=== PATIENT | female | born 1935 | race Caucasian/White ===

== ENCOUNTER 2016-12-18 18:50 | Inpatient (IN) | payer MEDICARE ==
[~2016-12-18] VITALS: Ht 170.2 cm; Wt 70.9 kg
[~2016-12-18 18:50] MED LIST: ALENDRONATE SOD70 MG PO; ARICEPT5 MG PO; ATIVAN0.5 MG PO; INVANZ 1 GM/NS 11 G1 IM; LEVAQUIN750 MG PO; NATURAL SENNA8.6 MG PO; OMEGA-3100 MG PO; POTASSIUM CHLO10 ME1 PO; REMERON15 MG PO; RIVASTIGMINE3 MG PO; SEROQUEL50 MG PO; ULTRAM50 MG PO; VITAMIN D2000 UNIT PO
[2016-12-18] MEDS ORDERED: ATIVAN0.5 MG PO (19:45)
[2016-12-18] MEDS ORDERED: NAMENDA5 MG PO (19:52)
[2016-12-18] MEDS ORDERED: ZYPREXA5 MG PO (19:53)
[2016-12-18] MEDS ORDERED: KLONOPIN0.5 MG PO (19:54)
[2016-12-18] MEDS ORDERED: ZOLOFT50 MG PO (20:08)
[2016-12-18 20:13] VITALS: BP 125/52
[2016-12-18 20:23] VITALS: BP 125/52; BMI 24.5
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
[2016-12-19 06:55] LABS: BASOPHILS 0.8 % (0.0-2.0); EOSINOPHILS 0 % (0-7); HEMATOCRIT 40.9 % (36.0-48.0); HEMOGLOBIN 13.2 g/dL (12-16); IMMATURE GRANULOCYTES 0.2 % (0-5); LYMPHOCYTES 26.5 % (15-50); MCH 29.4 pg (26.0-34.0); MCHC 32.3 g/dL (31.0-37.0); MCV 91.1 fL (80.0-100.0); MEAN PLATELET VOLUME 10.5 fL (7.4-10.4); MONOCYTES 9.6 % (2-11); NEUTROPHILS 62.9 % (40-80); PLATELET COUNT 186 10x3/uL (130-400); RBC 4.49 10x6/uL (4.00-5.40); RDW 13.5 % (11.5-14.5); WBC 5.3 10x3/uL (4.8-10.8)
[2016-12-19 07:09] LABS: APPEARANCE HAZY (CLEAR); BACTERIA MODERATE /hpf (NONE SEEN); BILIRUBIN NEGATIVE (NEGATIVE); COLOR YELLOW (YELLOW); EPITHELIAL CELLS OCC /hpf (0-5); GLUCOSE NEGATIVE (NEGATIVE); KETONE NEGATIVE (NEGATIVE); LEUKOCYTE ESTERASE TRACE (NEGATIVE); MUCUS <1+ /lpf (NONE SEEN); NITRITE NEGATIVE (NEGATIVE); PROTEIN NEGATIVE (NEGATIVE); UROBILINOGEN NORMAL (NORMAL); WHITE CELLS - URINE OCC /hpf (0-5)
[2016-12-19 07:10] LABS: AMORPHOUS SEDIMENT <1+ /lpf (NONE SEEN)
[2016-12-19 07:19] LABS: HEMOGLOBIN A1C 5.4 % (4.8-6.0)
[2016-12-19 07:24] LABS: ALBUMIN 3.5 g/dL (3.4-5.0); ANION GAP 12.8 mmol/L (8-16); BILIRUBIN - TOTAL 0.5 mg/dL (0.2-1.3); CALCIUM 8.9 mg/dL (8.5-10.1); CARBON DIOXIDE 27.1 mmol/L (21.0-32.0); CHOL - HDL RATIO 3.1 ratio (2.3-4.1); CREATININE - SERUM 0.9 mg/dL (0.6-1.3); LDL-HDL RATIO 1.9 ratio (1.5-3.5); POTASSIUM - SERUM 3.9 mmol/L (3.5-5.1); PROTEIN - SERUM 6.6 g/dL (6.4-8.2); THYROID STIMULATING HORMONE 2.16 uIU/mL (0.36-3.74)
[2016-12-19 08:36] VITALS: BP 121/64
--- NOTE | 2016-12-19 10:01 | NUR ---
EJ SPOKE WITH JAZ AT [facility] AND SHE STATED THE FACILITY WILL ACCEPT PT BACK AFTER SHE IS STABILIZED. EJ CALLED PT'S DTR, DAMIÁN, TO REPORT.
[2016-12-19 10:47] VITALS: Ht 170.2 cm; Wt 70.9 kg
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
[2016-12-19 19:30] VITALS: BP 143/85
--- NOTE | 2016-12-19 23:25 | NUR ---
B) Recieved patient sitting in room, alert and oriented to self, confused and unaware of why she is here, I) Administered perscribed medication, redirected and oriented as needed, R) Medication compliant, resting now quietly in bed, P) Continue plan of care, continue to monitor.
[2016-12-20 06:14] LABS: RAPID PLASMA REAGIN Non Reactive (Non Reactive)
[2016-12-20 08:21] LABS: FOLATE (FOLIC ACID) - SERUM >20.0 ng/mL (>3.0)
[2016-12-20 09:32] VITALS: BP 103/98
--- NOTE | 2016-12-20 12:52 | NUR ---
PATIENT IS CONFUSED, SHE IS ANXIOUS, SHE KEEPS GETTING IN OTHER PATIENT'S SPACE. SHE DOES NOT HAVE ANY BOUNDARIES, SHE IS TOUCHING OTHERS. SHE IS TEARFUL AND SHE CRIES SHE BELIEVES HER BABY IS OUTSIDE THE DOOR OF THE DAYROOM. I) PROVIDE MEDS ORDERED AND ATIVAN 0.5 MG PO GIVEN NOW. R) PATIENT IS COMPLIANT WITH MEDS, BUT CURRENTLY PACING AND ANXIOUS. P) CONTINUE PLAN OF CARE.
--- NOTE | 2016-12-20 13:39 | NUR ---
PATIENT IS SITTING IN A GLORIA CHAIR, BUT SHE IS NOT ABLE TO BE QUIET OR BE STILL, IT IS TIME FOR MUSIC THERAPY, BUT SHE IS NOT LISTENING, SHE IS TOO CONFUSED TO UNDERSTAND AT THIS TIME, NO AGGRESSION NOTED TODAY.
--- NOTE | 2016-12-20 14:21 | NUR ---
PATIENT SITTING IN GLORIA CHAIR AND SHE IS TAKING HER SHOES OFF AND HER PANTS OFF, SHE IS NONSENSICAL, SHE IS NON STOP TALKING.
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
[2016-12-20 20:24] VITALS: BP 143/72
--- NOTE | 2016-12-21 00:20 | NUR ---
PATIENT IN DAYROOM, WANDERING GETTING VERY CLOSE TO A PEER AND MAKING HER VERY UNCOMFORTABLE. WHEN REDIRECTED, PATIENT BECAME AGITATED, HITTING, KICKING AND TRYING TO TRIP STAFF. PATIENT WAS GIVEN PRN 0.5 ATIVAN I.M. AND 2 MG OF HALDOL I.M.
[2016-12-21 09:01] VITALS: BP 137/56
--- NOTE | 2016-12-21 14:00 | NUR ---
B) PATIENT IS CONFUSED, SHE TALKS NONSTOP AND NONSENSICAL. SHE IS AMBULATING AND GETTING INTO THE BOOK CASES, SHE IS TEARING NEWSPAPERS, SHE IS NOT ABLE TO BE STILL AND SHE IS NONSTOP. SHE HAS NOT SHOWN ANY AGGRESSION TODAY. I) PROVIDE PRESCRIBED MEDS. R) PATIENT IS COMPLIANT WITH MEDS AND UNIT MILIEU. P) CONTINUE PLAN OF CARE.
--- NOTE | 2016-12-21 14:12 | PN ---
PATIENT:JEROMY YANG MEDICAL RECORD: [id number] LOCATION:[facility] ADMISSION DATE: 12/18/16 PROGRESS NOTE DATE OF SERVICE: 12/20/2016 SUBJECTIVE: The patient's case was discussed with staff. She has no new complaint. OBJECTIVE: The patient is severely impaired cognitively. She has very limited insight about her condition. She has been agitated and did require p.r.n. medication to calm her. ASSESSMENT: No change in diagnoses. PLAN: The patient is going to be given Zyprexa at a dose of 5 mg at bedtime. Zyprexa is being used to treat her underlying psychotic symptoms. She will be monitored for clinical changes associated with its use. TRANSINT:[id number] Voice Confirmation ID: [id number] DOCUMENT ID: [id number] ALEXANDRIA MORILLO MD at 1412 CC: [id number] DICTATION DATE: 12/20/16 1835 SEARCH ENGINE OPTIMIZATION STRATEGIST: 12/21/16 0009 ADM IN [place] [address] [place] [address]
[2016-12-21 21:50] VITALS: BP 133/66
--- NOTE | 2016-12-22 02:06 | NUR ---
B) Recieved patient ambulating in the day room, alert and oriented to self, very confused and wanders from place to place, difficulty expressing her needs, I) Administered perscribed medications, redirected as needed, R) Medication compliant, unable to orient P) Continue plan of care, continue to monitor.
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
--- NOTE | 2016-12-22 11:57 | PN ---
PATIENT:JEROMY YANG MEDICAL RECORD: [id number] LOCATION:[facility] ADMISSION DATE: 12/18/16 PROGRESS NOTE DATE OF SERVICE: 12/21/2016 SUBJECTIVE: The patient's case was discussed with staff. She has no new complaint. OBJECTIVE: The patient is severely impaired cognitively, but has not been overtly aggressive. She has had some hallucinations that have been reported to me, but I have not observed her and then based on my brief interaction with her, the patient denies them, but she really does not understand what she is saying. ASSESSMENT: No change in diagnoses. PLAN: The patient is in the very last stages of her dementing illness. I am pleasantly surprised that she eats as well as she does even though it is not anything close to adequate. I think that the time has come for hospice to be considered as an alternative for her. TRANSINT:[id number] Voice Confirmation ID: [id number] DOCUMENT ID: [id number] ALEXANDRIA MORILLO MD at 1157 CC: [id number] DICTATION DATE: 12/21/16 1438 COOKEE: 12/21/16 1758 ADM IN [facility] [address] [place] [address]
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
--- NOTE | 2016-12-22 17:29 | NUR ---
PATIENT'S DAUGHTER CALLED AND CHECKED ON HER.
[2016-12-22 19:30] VITALS: BP 162/94
--- NOTE | 2016-12-23 01:20 | NUR ---
B) Recieved patient ambulating in the day room, alert and oriented to self, responds to name, very confused, wanders form place to place, follows staff, I) Administered perscribed medications, redirected as needed, monitored for falls and safety, R) Medication compliant, pleasant and friendly toward staff, needy/clingy at times, P) Continue plan of care, continue to monitor.
[2016-12-23 07:00] VITALS: BP 122/102
--- NOTE | 2016-12-23 13:28 | NUR ---
B) Mumbles to self, fidgety, restless and other times quiet, withdrawm and calm. States she is better now, when asked to state this place, "I believe there is 'D' and an 'A' somewhere". Difficulty following directions, swatting at staff and pushign them away when assisting her to sit in her chair. Carries on long conversations with herself. I) Administer medications as ordered, redirect and reorient PRN, monitor behavior, assist with ADLs. R) Confused, took most of her medications crushed in applesauce. Spit out partial dose of her Exelon, Senokot, Potassium, and Vitamin D this morning. Got her full dose of her other medications. P) Monitor per plan of care.
--- NOTE | 2016-12-23 17:54 | NUR ---
PT BECAME VERY ANXIOUS AFTER DINNER. PT WOULD NOT STAY SITTING, STAFF TRIED MULTIPLE TIMES TO REDIRECT AND REORIENT PT. PT IS NOT EASILY REDIRECTED. PT IS HITTING, KICKING AND BITING STAFF.STAFF HAS TRIED TO WALK WITH PT TO HELP CALM HER.PT IS GRABBING AT OTHER PT'S AND SWINGING AT STAFF.PT IS GIVEN 0.4 ML OF HALDOL TO HELP WITH ANXIETY. PT IS MONITORED 1 ON 1 TO HELP WITH SAFETY AND TO CONTINUE TO TRY AND CALM PT. WILL CONTINUE TO MONITOR.
[2016-12-23 19:30] VITALS: BP 145/66
--- NOTE | 2016-12-23 20:23 | NUR ---
RECEIVED IN DAYROOM WITH STAFF AND PEERS AT HER SIDE. ONE ON ONE CARE FOR SAFETY. ATTENPTS TO STAND WIRHOUT ASSIST. BOX ALARM IS ON. CALM AND COOPERATIVE WITH CARE AND ASSESSMENTS. NO SIGNS OF HALLUCINATIONS. CONTINUES TO SIT IN CHAIR. WITH STAFF AT HER SIDE. CONTINUE PLAN OF CARE
[2016-12-24 08:08] VITALS: BP 156/65
--- NOTE | 2016-12-24 18:26 | NUR ---
ORIENTED TO SELF ONLY.DOESN'T FOLLOW COMMANDS.TAKES MEDS CRUSHED AND GIVEN IN APPLESAUCE.CAN WALK BUT IS VERY UNSTEADY.LIKES TO BUSY SELF WITH FOLDING THINGS.WILL CONTINUE WITH PLAN OF CARE,MONITOR FOR CHANGES AND SAFETY.
[2016-12-24 20:00] VITALS: BP 107/56
--- NOTE | 2016-12-24 20:49 | NUR ---
RECEIVED IN DAYROOM. SITTING IN RECLINER WITH STAFF AND PEERS AT HER SIDE. CONFUSED. ORIENTED TO SELF ONLY. NO SIGNS OF AGGRESSION OR HALLUCINATIONS. ONE ON ONE MONITORING FOR SAFETY. REINFORCE FALLS SAFETY. CONTINUES TO SIT QUIETLY. CONTINUE PLAN OF CARE
[2016-12-25 09:01] VITALS: BP 106/58
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
--- NOTE | 2016-12-25 18:29 | NUR ---
IS ORIENTED TO SELF ONLY.COMPLIANT WITH MEDS CRUSHED AND TAKEN IN PUDDING.IS VERY UNSTEADY ON HER FEET.AMBULATES ONLY WITH ASSIST TO PREVENT FALLS.IS UNCOOPERATIVE AT TIMES WHEN WANTING TO GET OUT OF CHAIR WITHOUT ASSIST.WILL CONTINUE WITH PLAN OF CARE ,MONITOR FOR CHANGES AND SAFETY.
--- NOTE | 2016-12-25 19:47 | NUR ---
RECEIVED IN DAYROOM. SITTING AT TABLE WITH STAFF AT HER SIDE. VERY CONFUSED. ATTEMPTS TO STAND WITHOUT ASSIST. ONE ON ONE CARE GIVEN FOR SAFETY. CALM AND COOPERATIVE WITH CARE AND ASSESSMENT. NO SIGNS OF AGGRESSION. CONTINUES TO SIT IN RECLINER. RESTLESS AT TIMES. CONTINUE PLAN OF CARE
[2016-12-25 22:30] VITALS: BP 135/73
[2016-12-26 08:44] VITALS: BP 132/71
--- NOTE | 2016-12-26 09:35 | NUR ---
Nutrition Follow Up: Chart reviewed. Pt is eating 33% meal avg on a regular diet. Noted pt requires assistance with meals. +BM 12/26/16. No new wt to assess. No new labs. Meds noted including Vit D. Pt continues with poor po intake. Rec consider an appetite stimulant. Rec continue current diet. Will order Ensure with meals. Will continue to provide selective menus and honor food preferences. RD following.
--- NOTE | 2016-12-26 12:25 | NUR ---
B) PATIENT IS CONFUSED, SHE KNOWS HER NAME ONLY, SHE SAYS NONSENSICAL WORDS, BUT EVERY ONCE IN AWHILE SHE SAYS A FULL SENTENCE THAT MAKES SENSE, SHE IS UNSTEADY IN GAIT TODAY. SHE IS KEEPING HER EYES CLOSED. I) PROVIDE PRESCRIBED MEDS. R) PATIENT IS COMPLIANT WITH MEDS, SHE TAKES THEM CRUSHED IN PUDDING AND SHE GOES SLOWLY. P) CONTINUE PLAN OF CARE.
--- NOTE | 2016-12-26 13:58 | PN ---
PATIENT:JEROMY YANG MEDICAL RECORD: [id number] LOCATION:[facility] [address] ADMISSION DATE: 12/18/16 PROGRESS NOTE DATE OF SERVICE: 12/25/2016 SUBJECTIVE: The patient's case was discussed with staff. She has no new complaint. OBJECTIVE: The patient is not eating very well. She is very disorganized. She is at times combative with caregivers. ASSESSMENT: No change in diagnoses. PLAN: This patient's dementia is in its final phases. I would anticipate that she is going to need inpatient hospice care of some sort in the near future. Her prognosis is exceedingly poor and I think at this point, simply making her manageable in a long-term care setting along with being comfortable and relieve the both physical and emotional distress is the most reasonable course to pursue. TRANSINT:[id number] Voice Confirmation ID: [id number] DOCUMENT ID: [id number] ALEXANDRIA MORILLO MD at 1358 CC: [id number] DICTATION DATE: 12/25/16 1117 LEAN MANUFACTURING SPECIALIST: 12/25/16 1208 ADM IN [facility] [address] [place] [address]
--- NOTE | 2016-12-26 14:22 | NUR ---
SW CALLED PT'S DTR, DAMIÁN, TO DISCUSS DISCHARGE PLANNING. PT DOES NOT QUALIFY FOR HOSPICE AT THIS TIME BUT WILL BE RE-EVALUATED IN 30 DAYS. PT'S DTR VERBALIZED UNDERSTANDING OF DISCHARGE PLANS AND DISEASE PROGRESSION.
[2016-12-26 20:00] VITALS: BP 105/56
--- NOTE | 2016-12-26 23:33 | NUR ---
B) Recieved patient in te day room sitting in a chair, alert and oriented to self, calm and cooperative this shift, I) Administered perscribed medications crushed in apple sauce, monitored for safety, R) Medication compliant,resting now quietly, P) Continue plan of care, continue to monitor.
[2016-12-27 09:05] VITALS: BP 121/44
--- NOTE | 2016-12-27 12:01 | NUR ---
B) PATIENT IS VERY CONFUSED, SHE IS KEEPING HER EYES CLOSED AND TRYING TO WALK AROUND, SHE IS SHUFFLING AND GAIT IS UNSTEADY, STAFF ASSISTED HER TO W/C, BUT SHE CONTINUED TO STAND, STAFF ASSISTED TO A GERICHAIR AND SHE IS RESTING, BUT TALKING NONSENSICAL. I) PROVIDE PRESCRIBED MEDS. R) PATIENT IS COMPLIANT WITH MEDS. P) CONTINUE PLAN OF CARE.
--- NOTE | 2016-12-27 14:31 | PN ---
PATIENT:JEROMY YANG MEDICAL RECORD: [id number] LOCATION:[facility] ADMISSION DATE: 12/18/16 PROGRESS NOTE DATE OF SERVICE: 12/26/2016 SUBJECTIVE: The patient's case was discussed with staff. She has no new complaint. OBJECTIVE: The patient is in good behavioral control with limited insight about her condition. She tolerates her medicines well. ASSESSMENT: No change in diagnoses. PLAN: Current medicines have been reviewed and will be maintained. Long-term prognosis is guarded. Supportive and educational interventions were made. TRANSINT:[id number] Voice Confirmation ID: [id number] DOCUMENT ID: [id number] ALEXANDRIA MORILLO MD at 1431 CC: [id number] DICTATION DATE: 12/26/16 1417 OUTSIDE INDUSTRIAL SALES REPRESENTATIVE: 12/26/16 1536 ADM IN [facility] [address] [place] [address]
[2016-12-27] MEDS ORDERED: MEGACE ES625 MG/5 M PO (14:46)
[2016-12-27] MEDS ORDERED: RISPERDAL0.5 MG PO (14:47)
[2016-12-27 19:30] VITALS: BP 118/54
--- NOTE | 2016-12-28 01:16 | NUR ---
B) Recieved sitting in the day room, alert and oriented to self, unaware of where she is , calm and cooperative this shift, I) Administered perscribed medications, monitored for safety, R) Medication compliant, remanins very confused, P) Continue plan of care.
--- NOTE | 2016-12-28 07:55 | NUR ---
D/C ORDERS AND MAR FAXED TO [facility], HARD COPY MADE TO GIVE TO ACUTE CARE REGISTERED NURSE.
[2016-12-28 08:35] VITALS: BP 127/66
--- NOTE | 2016-12-28 09:45 | NUR ---
B) PATIENT IS AWAKE AND SHE IS EATING WELL, TAKING MEDICATION EASILY, CRUSHED IN PUDDING, SHE IS AMBULATORY, BUT HAS UNSTEADY GAIT. SHE IS NOT SHOWING ANY AGGRESSION TODAY, SHE WILL D/C TODAY. PATIENT IS NONSENSICAL IN SPEECH MOSTLY. I) PROVIDE PRESCRIBED MEDS. R) PATIENT IS COMPLIANT WITH MEDS AND ENJOYS LISTENING TO MUSIC. P) CONTINUE POC.
--- NOTE | 2016-12-28 12:20 | NUR ---
CALLED REPORT TO LISA AT [facility], ALL BELONGINGS PACKED, PATIENT IS READY TO D/C.
--- NOTE | 2016-12-28 13:17 | NUR ---
SW SPOKE TO DTRDAMIÁN, ABOUT DISCHARGE PLANS FOR TODAY.
--- NOTE | 2016-12-28 13:45 | NUR ---
MANAGER TRAINEE HERE, PATIENT D/C'D WITH HER BACK TO [facility], HARD COPIES PROVIDED, BELONGINGS GIVEN BACK.
--- NOTE | 2016-12-30 06:18 | PN ---
PATIENT:JEROMY YANG MEDICAL RECORD: [id number] LOCATION:[facility] ADMISSION DATE: 12/18/16 PROGRESS NOTE DATE OF SERVICE: 12/28/2016 SUBJECTIVE: No new complaint. OBJECTIVE: The patient has done fairly well. She is stable on her medications, arrangements have now been made for discharge. On exam, mood is euthymic. Affect is constricted. Speech is terse. Content of thought is negative for overt psychosis. Sensorium shows no change. ASSESSMENT: No change in diagnosis. PLAN: Anticipate discharge later today. TRANSINT:[id number] Voice Confirmation ID: [id number] DOCUMENT ID: [id number] NIKKI MCGRATH III, MD at 0618 CC: [id number] DICTATION DATE: 12/28/16 1235 SCARF AND ANNEAL OPERATOR: 12/28/162124 DIS IN 12/28/16 [place] [address] [place] [address]
--- NOTE | 2016-12-31 14:58 | PN ---
PATIENT:JEROMY YANG MEDICAL RECORD: [id number] LOCATION:[facility] ADMISSION DATE: 12/18/16 PROGRESS NOTE DATE OF SERVICE: 12/27/2016 SUBJECTIVE: The patient's case was discussed with staff. She has no new complaint. OBJECTIVE: The patient is in good behavioral control with poor insight about her condition. She is severely impaired intellectually. ASSESSMENT: No change in diagnoses. PLAN: Current medicines and therapies have been reviewed and will be maintained. Her long-term prognosis is guarded. TRANSINT:[id number] Voice Confirmation ID: [id number] DOCUMENT ID: [id number] ALEXANDRIA MORILLO MD at 1458 CC: [id number] DICTATION DATE: 12/27/16 1445 ARTIFICIAL INTELLIGENCE SPECIALIST: 12/27/162005 DIS IN 12/28/16 [facility] [address] [place] [address]
--- NOTE | 2017-01-07 14:09 | DS ---
PATIENT:JEROMY YANG :31 MEDICAL RECORD: [id number] DISCHARGE SUMMARY ADMISSION DATE: 12/18/16 DISCHARGE DATE: 12/28/16 Psychiatric Discharge Summary IDENTIFYING DATA: The patient is 81 years old and she was admitted to the hospital on a voluntary basis from the [facility]. The patient apparently was having active hallucinations at the care home. The patient denied that this was true. Apparently, the patient had become increasingly confused and agitated in the care home. She through various things at staff and was breaking plates and other items around the facility. She was clearly having auditory hallucinations at that time she was interviewed and was responding to them. The patient had little or no recollection of the psychotic symptoms and when they were pointed out to her denied them. She was also observed standing in front of the wall talking to someone not present. HOSPITAL COURSE: The patient was admitted to the hospital and fully evaluated from both a medical, psychological, and social standpoint. The patient was treated with both mood stabilizing and memory enhancing medications and she did show improvement in her behavior. She was subsequently transitioned back to the care home. 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 AXIS II: None. AXIS III: Hypertension, mitral valve prolapse, history of hepatitis. AXIS IV: Moderate stressors. AXIS V: Global assessment of functioning is 35. PLAN: At the time of discharge, the patient was not acutely dangerous to herself or others. She was tolerating her medications well. Her long-term prognosis is guarded. TRANSINT:[id number] Voice Confirmation ID: [id number] DOCUMENT ID: [id number] ALEXANDRIA MORILLO MD at 1409 CC: [id number] DICTATION DATE: 01/04/17 1342 WOOL HAT SANDING MACHINE OPERATOR: 01/05/17 0155 DIS IN 12/28/16 [facility] [address] [place] [address]
== END 2016-12-28 13:46 | DRG 57 ==
LOC: D.PSYCH 18:50
PROVIDERS: ADMIT Psychiatry & Neurology Psychiatry
DX: G30.1 Alzheimer's disease with late onset (principal); F02.81 Dementia in other diseases classified elsewhere, unspecified severity, with behavioral disturbance; I10 Essential (primary) hypertension; Z86.19 Personal history of other infectious and parasitic diseases; M19.90 Unspecified osteoarthritis, unspecified site; K21.9 Gastro-esophageal reflux disease without esophagitis; F41.9 Anxiety disorder, unspecified; F32.9 Major depressive disorder, single episode, unspecified; R63.0 Anorexia

== ENCOUNTER 2017-12-11 02:59 | Emergency (ER) | payer MEDICARE ==
[2016-12-19 10:47] VITALS: BMI 24.5
[~2017-12-11 02:59] MED LIST changes: +KLONOPIN0.5 MG PO; +MEGACE ES625 MG/5 M PO; +NAMENDA5 MG PO; +RISPERDAL0.5 MG PO; +ZOLOFT50 MG PO; +ZYPREXA5 MG PO
[2017-12-11 03:42] LABS: BASOPHILS 0.3 % (0-2); EOSINOPHILS 0.1 % (0-7); HEMATOCRIT 37.4 % (36.0-48.0); HEMOGLOBIN 11.8 g/dL (12-16); IMMATURE GRANULOCYTES 0.3 % (0-5); LYMPHOCYTES 13.3 % (15-50); MCH 29.4 pg (26.0-34.0); MCHC 31.6 g/dL (31.0-37.0); MCV 93.3 fL (80.0-100.0); MEAN PLATELET VOLUME 9.9 fL (7.4-10.4); MONOCYTES 9.7 % (2-11); NEUTROPHILS 76.3 % (40-80); PLATELET COUNT 165 10x3/uL (130-400); RBC 4.01 10x6/uL (4.00-5.40); RDW 14.3 % (11.5-14.5)
[2017-12-11 03:52] LABS: ANION GAP 10.2 mmol/L (8-16); CALCIUM 8.7 mg/dL (8.5-10.1); CARBON DIOXIDE 31.1 mmol/L (21.0-32.0); CREATININE - SERUM 0.9 mg/dL (0.6-1.3); POTASSIUM - SERUM 4.3 mmol/L (3.5-5.1)
== END 2017-12-11 04:53 | disposition home or self-care (01) ==
LOC: D.ER 02:59
PROVIDERS: Emergency Medicine
DX: S00.01XA Abrasion of scalp, initial encounter (principal); W19.XXXA Unspecified fall, initial encounter; Y93.89 Activity, other specified; Y92.129 Unspecified place in nursing home as the place of occurrence of the external cause; S00.03XA Contusion of scalp, initial encounter; G30.9 Alzheimer's disease, unspecified; F02.80 Dementia in other diseases classified elsewhere, unspecified severity, without behavioral disturbance, psychotic disturbance, mood disturbance, and anxiety; K21.9 Gastro-esophageal reflux disease without esophagitis; I10 Essential (primary) hypertension

== ENCOUNTER 2018-06-07 14:19 | Inpatient (IN) | payer MEDICARE ==
[~2018-06-07] VITALS: Ht 170.2 cm; Wt 54.4 kg
--- NOTE | ~2018-06-07 | OP ---
PATIENT NAME: JEROMY YANG MEDICAL RECORD: [id number] :31 LOCATION:[id number] ADMISSION DATE:06/07/18 SURGEON: TY CHAPPELL MD DATE OF OPERATION: 06/08/2018 PREOPERATIVE DIAGNOSES: 1. Displaced femoral neck fracture of the right hip. 2. Profound dementia. POSTOPERATIVE DIAGNOSES: 1. Displaced femoral neck fracture of the right hip. 2. Profound dementia. PROCEDURE: Bipolar endoprosthetic hip replacement of the right hip for displaced femoral neck fracture. SURGEON: Ty Chappell MD ANESTHESIA: General. INTRAOPERATIVE COMPLICATIONS: None. SUMMARY OF PATHOLOGIC FINDINGS: Consistent with the preoperative radiographs, the patient had a minimally displaced hip fracture; however, pinning was not an option as this patient will not comply with postoperative nonweightbearing orders. IMPLANTS USED: [place] Anato stem size 5 with a bipolar component 44 and an inside ball of 26 -3. OPERATIVE SUMMARY IN DETAIL: After obtaining the appropriate preoperative orthopedic surgery consent as well as anesthetic consultation, evaluation and clearance, the patient was brought to the operating room and placed on the operating table in supine position. After adequate general laryngeal mask airway was administered, the patient was placed in a left lateral decubitus position. All pressure points were well padded to include down leg peroneal pad as well as axillary roll. The patient was held firmly to the operating table using the vacuum pack suction system. The right lower extremity and hip were then prepped and draped in routine sterile fashion. Curvilinear incision was made over the greater trochanter, taken down along the IT band, split in line with the fibers of the IT band to reveal gluteus medius minimus attachment. These were reflected anteriorly. The hip capsule was split in line in a T-type fashion and saved for later reapproximation. Femoral neck cut was made using the Anato femoral neck cutting guide. The femoral head was then extracted from the acetabulum and used for measurements. Acetabulum was cleared of all bone fragments. Serial and sequential reaming and broaching were done for a size 5 Anato hip stem, which was put into place. Trial was undertaken. It was felt that the -3 was the most appropriate, -3 and bipolar articular were tamped on the Marcus taper. The hip was reduced. Intraoperative radiographs showed good position and placement with yarsani of leg length. Wound was copiously irrigated at this multiple points. Hip capsule was closed with #2 Ethibond followed by transosseous reapproximation of gluteus medius minimus back to the greater trochanter. IT band was closed with #2 Ethibond followed by #1 Vicryl, 2-0 Vicryl, and skin allyson. Sterile dressings were applied. The patient was awakened and taken to the recovery room in stable condition. All final needle OPERATIVE REPORT [id number] JEROMY YANG and sponge counts were correct. TRANSINT:[id number] Voice Confirmation ID: [id number] DOCUMENT ID: [id number] TA SHANKAR, TY MONTILLA at 1105 CC: [id number] DICTATION DATE: 06/08/18 1045 CRAB BACKER: 06/08/18 1101 ADM IN [facility] [address] [place] [address]
[2018-06-07] MEDS ORDERED: CELEXA20 MG PO (14:24)
[2018-06-07] MEDS ORDERED: RIVASTIGMINE3 MG PO (14:25)
[2018-06-07 15:39] LABS: APPEARANCE CLOUDY (CLEAR); COLOR YELLOW (YELLOW)
[2018-06-07 15:40] LABS: BILIRUBIN NEGATIVE (NEGATIVE); GLUCOSE NEGATIVE (NEGATIVE); KETONE NEGATIVE (NEGATIVE); NITRITE POSITIVE (NEGATIVE); PROTEIN NEGATIVE (NEGATIVE); SPECIFIC GRAVITY 1.015 (1.005-1.020); UROBILINOGEN NORMAL (NORMAL)
[2018-06-07 15:41] LABS: BACTERIA MANY /hpf (NONE SEEN); EPITHELIAL CELLS 0-5 /hpf (0-5); RED CELLS - URINE 0-5 /hpf (0-5); WHITE CELLS - URINE 0-5 /hpf (0-5)
[2018-06-07 16:01] LABS: BASOPHILS 0.1 % (0-2); EOSINOPHILS 0 % (0-7); HEMATOCRIT 39.5 % (36.0-48.0); IMMATURE GRANULOCYTES 0.2 % (0-5); LYMPHOCYTES 7.1 % (15-50); MCH 30.2 pg (26.0-34.0); MCHC 32.9 g/dL (31.0-37.0); MCV 91.9 fL (80.0-100.0); MEAN PLATELET VOLUME 10.1 fL (7.4-10.4); MONOCYTES 7.9 % (2-11); NEUTROPHILS 84.7 % (40-80); PLATELET COUNT 147 10x3/uL (130-400); RDW 13.3 % (11.5-14.5); WBC 12.6 10x3/uL (4.8-10.8)
[2018-06-07 16:09] LABS: INR 1.08 (0.85-1.17); PROTIME 13.6 SECONDS (11.6-15.0)
[2018-06-07 16:16] VITALS: BP 159/70
[2018-06-07 16:16] LABS: ALBUMIN 3.4 g/dL (3.4-5.0); ALKALINE PHOSPHATASE 60 U/L (46-116); ALT (SGPT) 24 U/L (10-68); BILIRUBIN - TOTAL 0.42 mg/dL (0.2-1.3); CALC OSMOLALITY 283 mosm/kg (275-300); CALCIUM 8.5 mg/dL (8.5-10.1); CARBON DIOXIDE 28.1 mmol/L (21.0-32.0); CHLORIDE - SERUM 104 mmol/L (98-107); CREATININE - SERUM 0.7 mg/dL (0.6-1.3); GLUCOSE 98 mg/dL (74-106); POTASSIUM - SERUM 3.8 mmol/L (3.5-5.1); PROTEIN - SERUM 6.5 g/dL (6.4-8.2); SODIUM 142 mmol/L (136-145); UREA NITROGEN 16 mg/dL (7-18); eGFR NON AFRICAN AMERICAN 84 mL/min (90-120)
[2018-06-07 16:43] VITALS: BP 135/80
[2018-06-07 18:27] VITALS: BP 168/78
[2018-06-07 19:08] VITALS: BP 135/65
[2018-06-07] MEDS ORDERED: ACETAMINOPHEN325 MG PO (20:25)
[2018-06-07 20:30] VITALS: BP 136/66
[2018-06-08] VITALS (7 sets, daily range): BP systolic 121–173; BP diastolic 58–82
[2018-06-08 05:37] LABS: BASOPHILS 0.2 % (0-2); EOSINOPHILS 0.1 % (0-7); HEMATOCRIT 38.4 % (36.0-48.0); HEMOGLOBIN 12.5 g/dL (12-16); IMMATURE GRANULOCYTES 0.2 % (0-5); LYMPHOCYTES 8.3 % (15-50); MCH 29.7 pg (26.0-34.0); MCHC 32.6 g/dL (31.0-37.0); MCV 91.2 fL (80.0-100.0); MEAN PLATELET VOLUME 10.2 fL (7.4-10.4); MONOCYTES 7.8 % (2-11); NEUTROPHILS 83.4 % (40-80); PLATELET COUNT 153 10x3/uL (130-400); RBC 4.21 10x6/uL (4.00-5.40); RDW 13.2 % (11.5-14.5)
[2018-06-08 05:58] LABS: INR 1.19 (0.85-1.17); PROTIME 14.7 SECONDS (11.6-15.0)
[2018-06-08 06:03] LABS: CALC OSMOLALITY 278 mosm/kg (275-300); CARBON DIOXIDE 27.2 mmol/L (21.0-32.0); CHLORIDE - SERUM 105 mmol/L (98-107); CREATININE - SERUM 0.7 mg/dL (0.6-1.3); GLUCOSE 123 mg/dL (74-106); POTASSIUM - SERUM 3.9 mmol/L (3.5-5.1); SODIUM 140 mmol/L (136-145); eGFR NON AFRICAN AMERICAN 84 mL/min (90-120)
[2018-06-08 06:09] LABS: UREA NITROGEN 10 mg/dL (7-18)
[2018-06-09 04:25] LABS: BASOPHILS 0.1 % (0-2); EOSINOPHILS 0 % (0-7); HEMATOCRIT 34.1 % (36.0-48.0); HEMOGLOBIN 11.1 g/dL (12-16); IMMATURE GRANULOCYTES 0.1 % (0-5); MCH 29.6 pg (26.0-34.0); MCHC 32.6 g/dL (31.0-37.0); MCV 90.9 fL (80.0-100.0); MEAN PLATELET VOLUME 10.5 fL (7.4-10.4); MONOCYTES 12.6 % (2-11); NEUTROPHILS 80.2 % (40-80); PLATELET COUNT 124 10x3/uL (130-400); RBC 3.75 10x6/uL (4.00-5.40); RDW 13.1 % (11.5-14.5)
[2018-06-09 04:31] LABS: CALC OSMOLALITY 281 mosm/kg (275-300); CALCIUM 7.5 mg/dL (8.5-10.1); CARBON DIOXIDE 31.8 mmol/L (21.0-32.0); CHLORIDE - SERUM 105 mmol/L (98-107); CREATININE - SERUM 0.7 mg/dL (0.6-1.3); GLUCOSE 102 mg/dL (74-106); SODIUM 142 mmol/L (136-145); UREA NITROGEN 9 mg/dL (7-18); eGFR NON AFRICAN AMERICAN 84 mL/min (90-120)
[2018-06-09 05:09] VITALS: BP 134/74
[2018-06-09 08:45] VITALS: BP 141/50
[2018-06-09 12:54] VITALS: Ht 170.2 cm; Wt 54.4 kg
[2018-06-09 13:21] VITALS: BP 154/59
[2018-06-09 16:41] VITALS: BP 131/64
[2018-06-09 17:44] LABS: APPEARANCE HAZY (CLEAR); BILIRUBIN NEGATIVE (NEGATIVE); COLOR YELLOW (YELLOW); GLUCOSE NEGATIVE (NEGATIVE); KETONE NEGATIVE (NEGATIVE); NITRITE POSITIVE (NEGATIVE); PROTEIN TRACE mg/dL (NEGATIVE); SPECIFIC GRAVITY 1.015 (1.005-1.020); UROBILINOGEN NORMAL (NORMAL)
[2018-06-09 17:45] LABS: BACTERIA FEW /hpf (NONE SEEN); EPITHELIAL CELLS 0-5 /hpf (0-5); RED CELLS - URINE 0-5 /hpf (0-5); WHITE CELLS - URINE >50 /hpf (0-5)
[2018-06-09 21:01] VITALS: BP 124/64
[2018-06-10 04:54] LABS: BASOPHILS 0.1 % (0-2); EOSINOPHILS 0.1 % (0-7); HEMOGLOBIN 10.5 g/dL (12-16); IMMATURE GRANULOCYTES 0.4 % (0-5); LYMPHOCYTES 9.1 % (15-50); MCH 29.6 pg (26.0-34.0); MCHC 31.8 g/dL (31.0-37.0); MEAN PLATELET VOLUME 10.4 fL (7.4-10.4); MONOCYTES 12.6 % (2-11); NEUTROPHILS 77.7 % (40-80); PLATELET COUNT 105 10x3/uL (130-400); RBC 3.55 10x6/uL (4.00-5.40); RDW 12.9 % (11.5-14.5); WBC 9.4 10x3/uL (4.8-10.8)
[2018-06-10 04:57] VITALS: BP 148/65
[2018-06-10 05:01] LABS: CALC OSMOLALITY 271 mosm/kg (275-300); CALCIUM 7.6 mg/dL (8.5-10.1); CHLORIDE - SERUM 103 mmol/L (98-107); GLUCOSE 91 mg/dL (74-106); POTASSIUM - SERUM 3.5 mmol/L (3.5-5.1); SODIUM 137 mmol/L (136-145); UREA NITROGEN 8 mg/dL (7-18)
[2018-06-10 05:06] LABS: CARBON DIOXIDE 22.7 mmol/L (21.0-32.0); CREATININE - SERUM 0.5 mg/dL (0.6-1.3); eGFR NON AFRICAN AMERICAN > 90 mL/min (90-120)
[2018-06-10 09:19] VITALS: BP 167/68
[2018-06-10 13:27] VITALS: BP 145/65
[2018-06-10 17:44] VITALS: BP 130/67
[2018-06-10 21:10] VITALS: BP 122/56
[2018-06-11 04:28] LABS: BASOPHILS 0 % (0-2); EOSINOPHILS 0.1 % (0-7); HEMATOCRIT 32.2 % (36.0-48.0); HEMOGLOBIN 10.9 g/dL (12-16); IMMATURE GRANULOCYTES 0.5 % (0-5); LYMPHOCYTES 9.2 % (15-50); MCHC 33.9 g/dL (31.0-37.0); MEAN PLATELET VOLUME 10.2 fL (7.4-10.4); MONOCYTES 11.2 % (2-11); RBC 3.63 10x6/uL (4.00-5.40); RDW 12.6 % (11.5-14.5); WBC 8.2 10x3/uL (4.8-10.8)
[2018-06-11 04:33] LABS: MCV 88.7 fL (80.0-100.0); PLATELET COUNT 132 10x3/uL (130-400)
[2018-06-11 04:45] LABS: CALC OSMOLALITY 278 mosm/kg (275-300); CALCIUM 7.9 mg/dL (8.5-10.1); CHLORIDE - SERUM 104 mmol/L (98-107); CREATININE - SERUM 0.5 mg/dL (0.6-1.3); GLUCOSE 91 mg/dL (74-106); SODIUM 141 mmol/L (136-145); UREA NITROGEN 8 mg/dL (7-18); eGFR NON AFRICAN AMERICAN > 90 mL/min (90-120)
[2018-06-11 04:54] LABS: CARBON DIOXIDE 28.6 mmol/L (21.0-32.0); POTASSIUM - SERUM 2.6 mmol/L (3.5-5.1)
[2018-06-11 05:07] VITALS: BP 132/60
[2018-06-11 08:48] VITALS: BP 139/57
[2018-06-11] MEDS ORDERED: ELIQUIS2.5 MG PO (08:54)
[2018-06-11 10:48] LABS: MAGNESIUM - SERUM 1.8 mg/dL (1.8-2.4); PHOSPHOROUS 1.9 mg/dL (2.5-4.9)
[2018-06-11 12:10] VITALS: BP 151/70
[2018-06-11 16:19] VITALS: BP 161/85
[2018-06-11 16:57] VITALS: BP 144/60
[2018-06-12 06:26] VITALS: BP 112/73
[2018-06-12 06:39] LABS: BASOPHILS 0.3 % (0-2); EOSINOPHILS 0 % (0-7); HEMATOCRIT 32.8 % (36.0-48.0); HEMOGLOBIN 10.9 g/dL (12-16); IMMATURE GRANULOCYTES 0.4 % (0-5); LYMPHOCYTES 11.8 % (15-50); MCH 29.6 pg (26.0-34.0); MCHC 33.2 g/dL (31.0-37.0); MCV 89.1 fL (80.0-100.0); MEAN PLATELET VOLUME 10.9 fL (7.4-10.4); MONOCYTES 12.2 % (2-11); NEUTROPHILS 75.3 % (40-80); RBC 3.68 10x6/uL (4.00-5.40); RDW 12.8 % (11.5-14.5); WBC 7.5 10x3/uL (4.8-10.8)
[2018-06-12 06:47] LABS: PLATELET COUNT 173 10x3/uL (130-400)
[2018-06-12 07:22] LABS: CALC OSMOLALITY 282 mosm/kg (275-300); CALCIUM 7.8 mg/dL (8.5-10.1); CARBON DIOXIDE 28.7 mmol/L (21.0-32.0); CHLORIDE - SERUM 105 mmol/L (98-107); CREATININE - SERUM 0.4 mg/dL (0.6-1.3); GLUCOSE 96 mg/dL (74-106); POTASSIUM - SERUM 3.4 mmol/L (3.5-5.1); SODIUM 143 mmol/L (136-145); UREA NITROGEN 6 mg/dL (7-18); eGFR NON AFRICAN AMERICAN > 90 mL/min (90-120)
[2018-06-12 08:45] VITALS: BP 139/61
[2018-06-12 12:44] VITALS: BP 139/690
== END 2018-06-12 13:55 | DRG 470 ==
LOC: D.ER 14:19 → D.EDHOLD 17:51 → D.MS 17:51 → D.M2 19:27 → D.MS 06-08 09:47
PROVIDERS: Family Medicine; Internal Medicine Nephrology; Orthopaedic Surgery
PROC: 0SRR0JZ Replacement of Right Hip Joint, Femoral Surface with Synthetic Substitute, Open Approach (ICD-10-PCS; principal; 2018-06-08 09:00)
DX: S72.001A Fracture of unspecified part of neck of right femur, initial encounter for closed fracture (principal); N39.0 Urinary tract infection, site not specified; F02.81 Dementia in other diseases classified elsewhere, unspecified severity, with behavioral disturbance; R44.0 Auditory hallucinations; W19.XXXA Unspecified fall, initial encounter; Y92.129 Unspecified place in nursing home as the place of occurrence of the external cause; K75.9 Inflammatory liver disease, unspecified; I10 Essential (primary) hypertension; I34.1 Nonrheumatic mitral (valve) prolapse; F41.8 Other specified anxiety disorders; M19.90 Unspecified osteoarthritis, unspecified site; K21.9 Gastro-esophageal reflux disease without esophagitis; G30.9 Alzheimer's disease, unspecified; R13.12 Dysphagia, oropharyngeal phase; E87.6 Hypokalemia; R63.0 Anorexia